=== PATIENT | female | born 1935 | race Caucasian/White ===

== ENCOUNTER 2023-03-30 20:55 | Observation (INO) | payer MEDICARE, OTHER ==
[2023-03-30 21:51] LABS: INR-International Normal Ratio 1.2; Prothrombin Time 15.4 sec (12.0-14.7)
[2023-03-30 21:59] LABS: #Basophils 0.1 thou/uL (0.0-0.2); #Eosinphils 0.1 thou/uL (0.0-0.7); #Lymphocytes 0.6 thou/uL (1.20-3.40); #Monocytes 1.1 thou/uL (0.11-0.59); #Neutrophils 11.3 thou/uL (1.40-6.50); %Basophils 0.5 % (0.0-1.0); %Eosinophils 0.7 % (0.0-10.0); %Lymphocytes 4.6 % (21.0-51.0); %Monocytes 8.1 % (0.0-10.0); ALT (SGPT) 26 U/L (8-55); AST (SGOT) 37 U/L (5-34); Albumin 3.3 g/dL (3.4-4.8); Alkaline Phosphatase 74 U/L (40-110); Anion Gap 18 mmol/L (10-20); BUN (Urea Nitrogen) 61 mg/dL (9.8-20.1); Bilirubin, Total 0.4 mg/dL (0.2-1.2); Calc. Creatinine Clearance 0 mL/min (70-130); Calcium 9.3 mg/dL (7.8-10.44); Carbon Dioxide 19 mmol/L (23-31); Chloride 101 mmol/L (98-107); Estimated GFR 18; Globulin 2.5 g/dL (2.4-3.5); Glucose 166 mg/dL (83-110); Hematocrit 35.1 % (36.0-47.0); Hemoglobin 11.4 g/dL (12.0-16.0); Mean Corpuscular HGB CONC 32.6 g/dL (32.0-36.0); Mean Corpuscular Hemoglobin 29.9 pg (27.0-31.0); Mean Corpuscular Volume 91.6 fl (78.0-98.0); Mean Platelet Volume 6.2 fL (7.4-10.4); Platelet Count 171 10x3/uL (130-400); Potassium 5.1 mmol/L (3.5-5.1); Protein, Total 5.8 g/dL (5.8-8.1); RBC Distribution Width 12.3 % (11.5-14.5); Red Blood Cell (RBC) Count 3.83 mill/uL (4.20-5.40); Sodium 133 mmol/L (136-145); White Blood Cell (WBC) Count 13.1 10x3/uL (4.8-10.8)
[2023-03-30 22:20] LABS: Bilirubin Small (Negative); Blood, Urine Negative (Negative); Clarity Clear (Clear); Glucose, Urine (Dipstick) Negative (Negative); Ketone, Urine Negative (Negative); Leukocyte Negative (Negative); Nitrite Negative (Negative); Protein, Urine (Dipstick) Trace mg/dL (Neg-Trace); Urobilinogen 0.2 mg/dL (Less than 2)
[2023-03-30 22:21] LABS: Bacteria/HPF Rare-Few HPF (None Seen); CAUTI Indications for Culture Alt mental st,lethar; RBC/HPF 0-3 HPF (0-3); Squamous Epithelial 0-3 HPF (0-3); WBC/HPF None Seen HPF (0-3)
[2023-03-30 22:22] LABS: Urine Culture Reflex No No
[2023-03-30] MEDS ORDERED: Ondansetron ODT 4 MG TAB SL PRN (23:45)
[2023-03-30] MEDS ORDERED: Acetaminophen 325 MG TAB PO PRN (23:45)
[2023-03-30] MEDS ORDERED: Ondansetron PF 4 MG/2 ML Vial IVP PRN (23:45)
[2023-03-30] MEDS: Sodium Chloride 0.9% 1,000 ML IV SCH (23:57)
[2023-03-31 06:01] LABS: Anion Gap 17 mmol/L (10-20); BUN (Urea Nitrogen) 56 mg/dL (9.8-20.1); Calc. Creatinine Clearance 0 mL/min (70-130); Carbon Dioxide 17 mmol/L (23-31); Chloride 105 mmol/L (98-107); Estimated GFR 24; Glucose 145 mg/dL (83-110); Potassium 4.6 mmol/L (3.5-5.1); Sodium 134 mmol/L (136-145)
[2023-03-31] MEDS: Sodium Chloride 0.9% 1,000 ML IV SCH ×2 (06:26→12:45)
[2023-03-31] MEDS ORDERED: Acetaminophen 500 MG TAB PO PRN (08:44)
[2023-03-31] MEDS ORDERED: Artificial Tear Sol 15 ML BOT EA EYE PRN (08:45)
[2023-03-31] MEDS ORDERED: Loratadine 10 MG TAB PO SCH (08:45)
[2023-03-31] MEDS ORDERED: Polyethylene Glycol 3350 17 GM Packet PO PRN (08:50)
[2023-03-31] MEDS ORDERED: Aspirin 81 mg Enteric Coated Tablet PO SCH (09:00)
[2023-03-31] MEDS ORDERED: cloNIDine 0.1 MG TAB PO SCH (09:00)
[2023-03-31] MEDS ORDERED: Multivit, Therapeutic 1 TAB PO SCH (09:00)
[2023-03-31] MEDS ORDERED: Lisinopril 20 MG TAB PO SCH (09:00)
[2023-03-31] MEDS ORDERED: Cyanocobalamin (Vitamin B-12) 1,000 MCG TAB PO SCH (09:00)
[2023-03-31] MEDS ORDERED: Gabapentin 300 MG CAP PO SCH ×2 (09:00→21:00)
[2023-03-31] MEDS ORDERED: busPIRone HCl 5 MG TAB PO SCH (09:00)
[2023-03-31] MEDS ORDERED: Docusate 100 MG CAP PO SCH (09:00)
[2023-03-31] MEDS ORDERED: Sodium Chloride 0.9% 1,000 ML IV SCH (12:45)
[2023-03-31 13:05] LABS: White Blood Cell (WBC) Count 12.3 10x3/uL (4.8-10.8)
[2023-03-31 16:14] VITALS: BP 169/92; TEMP 98.3
[2023-03-31 17:30] LABS: White Blood Cell (WBC) Count 12.4 10x3/uL (4.8-10.8)
== END 2023-03-31 18:45 ==
LOC: BURERS 20:55 → BURMED 22:35
PROVIDERS: ADMIT Family Medicine; ATTEND Family Medicine
DX: E86.0 Dehydration (principal); F41.9 Anxiety disorder, unspecified; F32.A Depression, unspecified; F03.90 Unspecified dementia, unspecified severity, without behavioral disturbance, psychotic disturbance, mood disturbance, and anxiety; I10 Essential (primary) hypertension; G62.9 Polyneuropathy, unspecified; D64.9 Anemia, unspecified; N17.9 Acute kidney failure, unspecified; D72.829 Elevated white blood cell count, unspecified; M50.020 Cervical disc disorder with myelopathy, mid-cervical region, unspecified level; Z88.1 Allergy status to other antibiotic agents; Z88.8 Allergy status to other drugs, medicaments and biological substances; Z88.5 Allergy status to narcotic agent; Z79.82 Long term (current) use of aspirin; Z79.899 Other long term (current) drug therapy; W19.XXXA Unspecified fall, initial encounter
CPT/HCPCS: 51701; 70450; 72125; 72170; 73502; 80048; 80053; 81001; 82550 ×3; 82565; 84520; 85025; 85048; 85610; 99285; G0378; 36415; J7050